=== PATIENT | male | born 1960 | race Caucasian/White ===

== ENCOUNTER 2023-04-07 11:45 | Outpatient (CLI) | payer MEDICARE, SELFPAY ==
[2023-04-07 18:30] LABS: Alanine Aminotransferase 41 U/L (6-50); Albumin Level 4.5 g/dL (3.5-5.1); Alkaline Phosphatase 54 U/L (38-126); Anion Gap 10 mmol/L (8-16); Aspartate Amino Transferase 75 U/L (17-59); Bilirubin,Total 1.3 mg/dL (0.2-1.3); Blood Urea Nitrogen 21 mg/dL (9-20); Calcium 9.3 mg/dL (8.4-10.2); Carbon Dioxide 27 mmol/L (22-30); Chloride 99 mmol/L (98-107); Cholesterol 111 mg/dL (0-200); Estimated Glomerular Filt Rate > 60; Glucose 96 mg/dL (65-110); HDL Direct 30 mg/dL; Potassium 4.2 mmol/L (3.4-5.0); Sodium 136 mmol/L (137-145); Triglycerides 83 mg/dL (<150)
[2023-04-07 18:41] LABS: LDL Cholesterol Direct 61 mg/dL
[2023-04-07 18:42] LABS: Hematocrit 48.7 % (42.0-52.0); Hemoglobin 16.1 g/dL (14.0-18.0); Mean Corpuscular HGB Conc 33.1 g/dl (32-36); Mean Corpuscular Volume 99.8 fl (80-100); Mean Platelet Volume 10.7 fl (7.4-10.4); Platelet Count Result 195 k/mm3 (150-375); Red Blood Count 4.88 M/mm3 (4.6-6.20); Red Cell Distribution Width 12.4 % (11.5-14.5); White Blood Count 8.4 K/mm3 (4.5-10.0)
[2023-04-07 18:48] LABS: Creatinine Urine 211.2 mg/dL
[2023-04-07 18:52] LABS: MALB Creatinine Ratio 38.1 mg/g (0-30); Microalbumin Urine Random 80.4 mg/L (0-16.7)
[2023-04-07 19:07] LABS: Vitamin D 25 Hydroxy 25.2 ng/mL
[2023-04-07 19:24] LABS: Hemoglobin A1C 5.7 % (<5.7)
[2023-04-07 19:39] LABS: Hepatitis C Virus Antibody Negative (Negative)
== END 2023-04-07 11:46 | disposition home or self-care (01) ==
PROVIDERS: PCP Family Medicine; Visit Provider Physician Assistant
DX: Z12.5 Encounter for screening for malignant neoplasm of prostate (principal); E11.9 Type 2 diabetes mellitus without complications; I10 Essential (primary) hypertension; E55.9 Vitamin D deficiency, unspecified; Z11.59 Encounter for screening for other viral diseases; Z79.899 Other long term (current) drug therapy
CPT/HCPCS: 36415; 80053; 80061; 82043; 82306; 82607; 83036; 84153; 84443; 85027; 86803; G0103

== ENCOUNTER 2023-08-26 11:02 | Outpatient (CLI) | payer MEDICARE, OTHER, SELFPAY ==
[2023-08-26 12:28] LABS: Alanine Aminotransferase 32 U/L (6-50); Albumin Level 4.4 g/dL (3.5-5.1); Alkaline Phosphatase 60 U/L (38-126); Aspartate Amino Transferase 45 U/L (17-59)
== END 2023-08-26 11:03 | disposition home or self-care (01) ==
PROVIDERS: PCP Family Medicine; Visit Provider Family Medicine
DX: R94.5 Abnormal results of liver function studies (principal)
CPT/HCPCS: 36415; 80076

== ENCOUNTER 2024-04-05 08:14 | Outpatient (CLI) | payer MEDICARE, OTHER, SELFPAY ==
[2024-04-05 14:42] LABS: Hemoglobin A1C 6.2 % (<5.7)
[2024-04-05 14:48] LABS: Alanine Aminotransferase 31 U/L (6-50); Albumin Level 4.4 g/dL (3.5-5.1); Alkaline Phosphatase 61 U/L (38-126); Anion Gap 9 mmol/L (4-12); Aspartate Amino Transferase 67 U/L (17-59); Bilirubin,Total 2.2 mg/dL (0.2-1.3); Blood Urea Nitrogen 21 mg/dL (9-20); Calcium 9.1 mg/dL (8.4-10.2); Carbon Dioxide 30 mmol/L (22-30); Chloride 98 mmol/L (98-107); Cholesterol 102 mg/dL (0-200); Estimated Glomerular Filt Rate > 60; Glucose 90 mg/dL (65-110); HDL Direct 34 mg/dL; Potassium 4.4 mmol/L (3.4-5.0); Sodium 137 mmol/L (137-145); Triglycerides 70 mg/dL (<150)
[2024-04-05 14:59] LABS: LDL Cholesterol Direct 50 mg/dL
[2024-04-05 15:19] LABS: Prostate Specific Antigen 1.3 ng/mL (< OR = 4.0)
[2024-04-05 17:31] LABS: MALB Creatinine Ratio 475.6 mg/g (0-30)
== END 2024-04-05 08:15 | disposition home or self-care (01) ==
LOC: ANHGOSHLAB 08:17
PROVIDERS: PCP Family Medicine; Visit Provider Family Medicine
DX: E11.9 Type 2 diabetes mellitus without complications (principal); Z12.5 Encounter for screening for malignant neoplasm of prostate
CPT/HCPCS: 36415; 80053; 80061; 82043; 82607; 83036; 84153; G0103

== ENCOUNTER 2024-08-03 08:10 | Outpatient (CLI) | payer MEDICARE, OTHER, SELFPAY ==
--- OUTSIDE RECORDS SUMMARY | 2024-08-03 08:21 | XMS_ITS | Referral Summary ---
Author Organization [facility] Address [address] [place] [phone] Care Team Providers Care Lace Inspector Name Role Phone Jose Enrique Gonzales MD Primary Care Provider [phone] Encounters Date Type Department Care Team Description 06/22/2024 Telephone [facility] Cardiology [address] [place] [phone] Duncan Esparza MD cancel cardioversion; echo results 06/14/2024 10:15 AM MANUFACTURING WEAVER Ancillary Procedure [facility] Medical [facility] Cardiology [address] [place] [phone] Atrial fibrillation, unspecified type (HCC) 05/24/2024 Telephone [facility] Cardiology at [address] [place] [phone] Duncan Esparza MD 05/24/2024 8:00 AM MANUFACTURING WEAVER Office Visit [facility] Cardiology at [address] [place] [phone] Duncan Esparza MD Atrial fibrillation, unspecified type (HCC) from Last 3 Months Allergies No known active allergies Medications multivitamin tablet Active rosuvastatin (CRESTOR) 5 mg tablet Take 1 tablet (5 mg total) by mouth Active omega 6-mir-qew-fish oil (FISH OIL) 60-90-500 mg capsule Take by mouth Active amLODIPine (NORVASC) 5 mg tablet Take 1 tablet (5 mg total) by mouth daily Active apixaban (ELIQUIS) 5 mg tablet Take 1 tablet (5 mg total) by mouth 2 (two) times a day Active azithromycin (ZITHROMAX) 250 mg tablet Take 1 tablet (250 mg total) by mouth daily Active cholecalciferol (VITAMIN D-3) 1,000 unit Take 1 tablet/capsule (1,000 Units total) by mouth daily Active flaxseed oiL 1,000 mg capsule Take by mouth Active hydroCHLOROthia zide 12.5 mg tablet Take 1 tablet (12.5 mg total) by mouth daily Active acidophilus-pec tin, citrus 100 million cell-10 mg capsule Take by mouth Activ e lisinopriL (PRINIVIL,ZESTR IL) 40 mg tablet Take 1 tablet (40 mg total) by mouth daily Active lysine 500 mg tablet 1 tablet (500 mg total) Active metFORMIN (GLUCOPHAGE) 500 mg tablet Take 2 tablets (1,000 mg total) by mouth 2 (two) times a day with meals Active metoprolol XL (TOPROL-XL) 25 mg extended release tablet Take 1 tablet (25 mg total) by mouth daily Active semaglutide (RYBELSUS) 14 mg tablet Take by mouth respiratory care instructor before breakfast Active Active Problems Problem Noted Date Diagnosed Date Atrial fibrillation 05/24/2024 Hemangioma of skin 07/20/2015 Benign neoplasm of soft tissues 07/20/2015 Skin benign neoplasm 11/02/2013 Eczema 11/02/2013 Social History Tobacco Use Types Packs/Day Years Used Date Smoking Tobacco: Never Smokeless Tobacco: Former Tobacco Cessation:Counseling Given: Not Answered Sex and Gender Information Value Date Recorded Sex Assigned at Not on file Legal Sex Male 4:18 AM MANUFACTURING WEAVER Gender Identity Not on file Sexual Orientation Not on file Last Filed Vital Signs Vital Sign Reading Time Taken Comments Blood Pressure 144/95 06/14/2024 9:58 AM MANUFACTURING WEAVER Pulse 100 05/24/2024 8:09 AM MANUFACTURING WEAVER Temperature - - Respiratory Rate - - Oxygen Saturation 96% 05/24/2024 8:09 AM MANUFACTURING WEAVER Inhaled Oxygen Concentration - - Weight 128.4 kg (283 lb) 05/24/2024 8:09 AM MANUFACTURING WEAVER Height 182.9 cm (6') 05/24/2024 8:09 AM MANUFACTURING WEAVER Body Mass Index 38.38 05/24/2024 8:09 AM MANUFACTURING WEAVER Plan of Treatment Not on file Procedures Procedure Name Priority Date/Time Associated Diagnosis Comments TRANSTHORACIC ECHO (TTE) COMPLETE W DOPPLER/CF WO CONTRAST Routine 06/14/2024 10:58 AM MANUFACTURING WEAVER Atrial fibrillation, unspecified type (HCC) ELECTROCARDIOGRAM REPORT Routine 024 10:08 AM MANUFACTURING WEAVER Atrial fibrillation, unspecified type (HCC) from Last 3 Months Results * TRANSTHORACIC ECHO (TTE) COMPLETE W DOPPLER/CF WO CONTRAST (06/14/2024 10:58 AM MANUFACTURING WEAVER) LV EF % CONS SCIMAGE Anatomical Region Laterality Modality Ultrasound 06/14/2024 10:0 0 AM MANUFACTURING WEAVER Narrative 06/14/2024 11:33 AM MANUFACTURING WEAVER [facility] Medical [facility] Cardiology [address] [facility] [address] [address] [address] [facility] [address], [place] [address] P:[phone] P:[phone] Echocardiographic Report Patient Name: SELVIN SINGH W : 1960 Study Date: 06/14/2024 10:00:34 AM Gender: M Tech: Location: [place] Ref Provider: DUNCAN ESPARZA Height(Cm): 183 BSA: 2.55 Weight(Kg): 128.4 Heart Rate: 106 BP: 144 / 95 Quality: Definity contrast agent used to enhance endocardial border definition Order Provider: DUNCAN ESPARZA PROCEDURES: Echocardiographic Report: Transthoracic echocardiogram with complete 2D, M-Mode, color Doppler examination and Definity contrast. INDICATIONS: I48.91 Unspecified atrial fibrillation. MEASUREMENTS: 2D/MM Value Range Doppler Value Range EF Mod BP 63 % [ 52 - 72 ] TRUDY Vmax 3.12 cm2 [ 2.00 - 4.00 ] EF Teich MM 73 % [ 52 - 72 ] AV Mean PG 3 mmHg LVIDd 2D 4.38 cm [ 4.20 - 5.80 ] AV Peak Kuldeep 1.15 m/s [ 1.00 - 1.70 ] LVIDd MM 5.55 cm [ 4.20 - 5.80 ] AV Peak PG 5 mmHg LVIDs 2D 3.49 cm [ 2.50 - 4.00 ] AV VTI 18.37 cm LVIDs MM 3.21 cm [ 2.50 - 4.00 ] LVOT Diam 2.20 cm [ 1.70 - 2.10 ] LVPWd 2D 1.14 cm [ 0.60 - 1.00 ] LVOT Peak Kuldeep 0.95 m/s [ 0.70 - 1.10 ] LVPWd MM 1.01 cm [ 0.60 - 1.00 ] LVOT VTI 15.65 cm IVSd 2D 2.42 cm [ 0.60 - 1.00 ] MV E Peak Kuldeep 0.66 m/s [ 0.60 - 1.30 ] IVSd MM 1.51 cm [ 0.60 - 1.00 ] MV Decel Time 181 msec [ 104 - 258 ] LA Dimension MM 5.12 cm [ 3.00 - 4.00 ] PV Peak Kuldeep 0.94 m/s [ 0.40 - 0.80 ] AoR Diam MM 4.00 cm [ 3.10 - 3.70 ] TR Peak Kuldeep 3.12 m/s [ 1.00 - 2.80 ] LA Volume Index 46 cc/m2 [ 16 - 34 ] TR Peak PG 39 mmHg RVSP 47.00 mmHg [ 10.00 - 36.00 ] Lateral E` 0.07 m/s [ 0.10 - 0.15 ] E` 0.05 m/s E/E` 10 2D/MM Value Range Doppler Value Range - FINDINGS: Interpretation Site: Exam was interpreted at [facility]. Left Ventricle: Definity contrast agent used to visually enhance endocardial wall motion and contractility. Lot Number: [id number]. Ejection fraction is measured at 63 %. The left ventricle is normal in size and systolic function. There is asymmetric septal hypertrophy. There is moderate concentric left ventricular hypertrophy. The left ventricular ejection fraction is visually estimated to be 60-65%. Right Ventricle: The right ventricle is normal in size and systolic function. Left Atrium: The left atrium is moderately dilated. Right Atrium: The right atrium is dilated. Atrial Septum: The atrial septum visually appears intact. Mitral Valve: The mitral valve is normal. There is mild mitral regurgitation. Aortic Valve: The aortic valve is probably trileaflet and opens well. There is no aortic regurgitation. Tricuspid Valve: The tricuspid valve is normal. There is trace tricuspid regurgitation. Pulmonic Valve: The pulmonic valve is not well visualized. There is no color Doppler evidence of pulmonic valve regurgitation. Pericardium: Normal pericardium with no significant pericardial effusion. Aorta: The aortic root at the level of the sinus of Valsalva measures 3.5 cm in diameter. IVC: Normal size and normal respiratory collapse consistent with normal right atrial pressure (<5 mmHg). CONCLUSIONS: Normal biventricular size and systolic function. There is asymmetric septal hypertrophy. The left atrium is moderately dilated. Electronically Signed By: Dr. Mic Mccracken 06/14/2024 11:32:24 AM MANUFACTURING WEAVER Procedure Note Mic Mccracken MD - 06/14/2024 [facility] Medical [facility] Cardiology [address] [facility] [id number] [address] [facility] [address] [address] P:[phone] P:[phone] Echocardiographic Report Patient Name: SELVIN SINGH W : 1960 Study Date: 06/14/2024 10:00:34 AM Gender: M Tech: Location: [facility] Provider: DUNCAN ESPARZA Height(Cm): 183 BSA: 2.55 Weight(Kg): 128.4 Heart Rate: 106 BP: 144 / 95 Quality: Definity contrast agent used to enhance endocardial borderdefinition Order Provider: DUNCAN ESPARZA PROCEDURES: Echocardiographic Report: Transthoracic echocardiogram with complete 2D, M-Mode, color Dopplerexamination and Definity contrast. INDICATIONS: I48.91 Unspecified atrial fibrillation. MEASUREMENTS: 2D/MM Value Range Doppler ValueRange EF Mod BP 63 % [ 52 - 72 ] TRUDY Vmax 3.12cm2 [ 2.00 - 4.00 ] EF Teich MM 73 % [ 52 - 72 ] AV Mean PG 3mmHg LVIDd 2D 4.38 cm [ 4.20 - 5.80 ] AV Peak Kuldeep 1.15m/s [ 1.00 - 1.70 ] LVIDd MM 5.55 cm [ 4.20 - 5.80 ] AV Peak PG 5mmHg LVIDs 2D 3.49 cm [ 2.50 - 4.00 ] AV VTI 18.37cm LVIDs MM 3.21 cm [ 2.50 - 4.00 ] LVOT Diam 2.20 cm[ 1.70 - 2.10 ] LVPWd 2D 1.14 cm [ 0.60 - 1.00 ] LVOT Peak Kuldeep 0.95m/s [ 0.70 - 1.10 ] LVPWd MM 1.01 cm [ 0.60 - 1.00 ] LVOT VTI 15.65cm IVSd 2D 2.42 cm [ 0.60 - 1.00 ] MV E Peak Kuldeep 0.66m/s [ 0.60 - 1.30 ] IVSd MM 1.51 cm [ 0.60 - 1.00 ] MV Decel Time 181msec [ 104 - 258 ] LA Dimension MM 5.12 cm [ 3.00 - 4.00 ] PV Peak Kuldeep 0.94m/s [ 0.40 - 0.80 ] AoR Diam MM 4.00 cm [ 3.10 - 3.70 ] TR Peak Kuldeep 3.12m/s [ 1.00 - 2.80 ] LA Volume Index 46 cc/m2 [ 16 - 34 ] TR Peak PG 39mmHg RVSP 47.00 mmHg [ 10.00 - 36.00 ] Lateral E` 0.07 m/s [ 0.10 - 0.15 ] E` 0.05 m/s E/E` 10 2D/MM Value Range Doppler ValueRange - FINDINGS: Interpretation Site: Exam was interpreted at [facility]. Left Ventricle: Definity contrast agent used to visually enhance endocardial wall motionand contractility. Lot Number: [id number]. Ejection fraction is measured at 63 %.The left ventricle is normal in size and systolic function. There is asymmetricseptal hypertrophy. There is moderate concentric left ventricular hypertrophy.The left ventricular ejection fraction is visually estimated to be 60-65%. Right Ventricle: The right ventricle is normal in size and systolic function. Left Atrium: The left atrium is moderately dilated. Right Atrium: The right atrium is dilated. Atrial Septum: The atrial septum visually appears intact. Mitral Valve: The mitral valve is normal. There is mild mitral regurgitation. Aortic Valve: The aortic valve is probably trileaflet and opens well. There is no aorticregurgitation. Tricuspid Valve: The tricuspid valve is normal. There is trace tricuspid regurgitation. Pulmonic Valve: The pulmonic valve is not well visualized. There is no color Dopplerevidence of pulmonic valve regurgitation. Pericardium: Normal pericardium with no significant pericardial effusion. Aorta: The aortic root at the level of the sinus of Valsalva measures 3.5 cm indiameter. IVC: Normal size and normal respiratory collapse consistent with normal rightatrial pressure (<5 mmHg). CONCLUSIONS: Normal biventricular size and systolic function. There is asymmetric septal hypertrophy. The left atrium is moderately dilated. Electronically Signed By: Dr. Mic Mccracken 06/14/2024 11:32:24 AM MANUFACTURING WEAVER Duncan Esparza MD CV ECHO PROCEDURES Final Result * Electrocardiogram Report (05/24/2024 10:08 AM MANUFACTURING WEAVER) us Duncan Esparza MD ECG ORDERABLES Edited R esult - Final from Last 3 Months Insurance [facility] Care Teams Lace Inspector Relationship Specialty Start Date End Date Jose Enrique Gonzales MD [address] [place] [address] PCP - General Internal Medicine 11/05/18
--- OUTSIDE RECORDS SUMMARY | 2024-08-03 08:21 | XMS_ITS | Clinical Summary ---
Author Organization [facility] Address [address] [place] [address] Care Team Providers Care Access Lead Name Role Phone Unavailable Primary Care Provider Unavailabl e Source Comments [facility],non-owned Affiliates and Associated Physician Practices is amultiple site organization consisting of ambulatory clinics and hospital sitesin [place], [place], [place] and [place]. This disclosure is being madepursuant to the Care Everywhere program and may not contain all information available regarding this patient. Last updated 18.[facility] Allergies No known active allergies Medications * Be aware that medications may not be up to date on this document. Alwaysverify current medications with the patient. Medication Sig Dispensed Refills Start Date End Date Status rosuvastatin (CRESTOR) 5 MG tablet Take 5 mg by mouth once daily Active ASPIRIN 81 PO Active NIACIN CR PO Active [place]-3 Fatty Acids (FISH OIL PO) Active Multiple Vitamins-Minerals (MULTIVITAMIN ADULT PO) A ctive Social History Tobacco Use Types Packs/Day Years Used Date Smoking Tobacco: Never Smokeless Tobacco: Never Sex and Gender Information Value Date Recorded Sex Assigned at Not on file Gender Identity Not on file Sexual Orientation Not on file Last Filed Vital Signs Vital Sign Reading Time Taken Comments Blood Pressure 162/102 10/24/2018 10:42 AM CDT Pulse 91 10/24/2018 10:42 AM CDT Temperature 37.8 C (100.1 F) 10/24/2018 10:42 AM CDT Respiratory Rate 20 10/24/2018 10:42 AM CDT Oxygen Saturation 93% 10/24/2018 10:42 AM CDT Inhaled Oxygen Concentration - - Weight 113.4 kg (250 lb) 10/24/2018 10:42 AM CDT Height 182.9 cm (6') 10/24/2018 10:42 AM CDT Body Mass Index 33.91 10/24/2018 10:42 AM CDT Plan of Treatment Health Maintenance Due Date Last Done Comments COLOGUARD (AGES 45-75) - COL ON CA SCREENING 1960 COLON MONITORING 1960 COLONOSCOPY - COLON CA SCREENING 1958 CT COLONOGRAPHY - COLON CA SCREENING 1960 Colorectal Cancer Screening 1960 FIT - COLON CA SCREENING 1960 FLEX SIG - COLON CA SCREENING 1960 HEPATITIS C SCREENING 03/16/1976 DTAP/TDAP/TD VACCINES (1 - Tdap) 1977 PNEUMOCOCCAL VACCINE 50+ (1 of 1 - PCV) 2008 ZOSTER VACCINE (1 of 2) 2008 SCREENING FOR DIABETES 10/24/2018 COVID-19 VACCINE ( - 2023-2 5 season) 2024 INFLUENZA VACCINE (#1) 2024 DEPRESSION SCREENING 05/25/2024 Respiratory Syncytial Virus (RSV) Vaccine Pt: or over 60 yrs (1 - 1-dose 75+ series) 2033 HEPATITIS B VACCINE Aged Out No longe r eligible based on patient's age to complete this topic HIB VACCINE Aged Out No longer eligi ble based on patient's age to complete this topic HPV VACCINE Aged Out No longer eligi ble based on patient's age to complete this topic MENINGOCOCCAL (Group B) VACC INE SHARED DECISION-MAKING Aged Out No longer eligibl e based on patient's age to complete this topic MENINGOCOCCAL GROUPS A/C/Y/W VACCINE Aged Out No longer eligible b ased on patient's age to complete this topic
--- OUTSIDE RECORDS SUMMARY | 2024-08-03 08:21 | XMS_ITS | Referral Summary ---
Author Organization [facility] Address [address] [place] [address] Care Team Providers Care Residential Support Worker Name Role Phone Unavailable Primary Care Provider Unavailabl e Source Comments [facility],non-owned Affiliates and Associated Physician Practices is amultiple site organization consisting of ambulatory clinics and hospital sitesin [place], [place], [place] and [place]. This disclosure is being madepursuant to the Care Everywhere program and may not contain all information available regarding this patient. Last updated 18.[facility] Allergies No known active allergies Medications * Be aware that medications may not be up to date on this document. Alwaysverify current medications with the patient. Medication Sig Dispensed Refills Start Date End Date Status rosuvastatin (CRESTOR) 5 MG tablet Take 5 mg by mouth once daily Active ASPIRIN 81 PO Active NIACIN CR PO Active [place]-3 Fatty Acids (FISH OIL PO) Active Multiple [...] 10/24/2018 10:42 AM CDT Plan of Treatment Not on file [place] [address]
--- OUTSIDE RECORDS SUMMARY | 2024-08-03 08:21 | XMS_ITS | Patient Health Summary ---
Author Organization [facility] Address [address] [place] [address] Care Team Providers Care Vascular Technologist Sonographer Name Role Phone Unavailable Primary Care Provider Unavailabl e Note from [facility],non-owned Affiliates and Associated Physician Practices is amultiple site organization consisting of ambulatory clinics and hospital sitesin [place], [place], [place] and [place]. This disclosure is being madepursuant to the Care Everywhere program and may not contain all information available regarding this patient. Last updated 18.[facility] Allergies No known active allergies Medications * Be aware that medications may not be up to date on this document. Alwaysverify current medications with the patient. * rosuvastatin (CRESTOR) 5 MG tablet Take 5 mg by mouth once daily * ASPIRIN 81 PO * NIACIN CR PO * [place]-3 Fatty Acids (FISH OIL PO) * Multiple Vitamins-Minerals (MULTIVITAMIN ADULT PO) Social History Tobacco Use Types Packs/Day Years [...] Mass Index 33.91 10/24/2018 10:42 AM CDT Procedures * INFLUENZA A+B - POINT OF CARE (AMB)(Performed 10/24/2018) Performed for Acute URI, Acute pharyngitis, unspecified etiology * STREP A SCREEN - POINT OF CARE (AMB) STL(Performed 10/24/2018) Performed for Acute URI, Acute pharyngitis, unspecified etiology Results * STREP A SCREEN - POINT OF CARE (AMB) STL (10/24/2018) Strep A Rapid POCT Negative Negative Strep A Internal Control Present Lot # [id number] Expiration Date 03/24/20 Throat ENTIRE THROAT (SURFACE REGION OF NECK) / Unknown 10/24/2018 [facility] RE ORDERABLES * INFLUENZA A+B - POINT OF CARE (AMB) (10/24/2018) Influenza A Antigen Rapid Negative Negative Influenza B Antigen Rapid Negative Negative Influenza Internal Control yes NEGATIVE - POSITIVE Influenza Lot Number [id number] Influenza Expiration Date 04/05/20 Other NASOPHARYNGEAL SWAB / Unknown 10/24/2018 [facility] - POINT OF CA RE ORDERABLES
--- OUTSIDE RECORDS SUMMARY | 2024-08-03 08:21 | XMS_ITS | Clinical Summary ---
Author Organization [facility] Address [address] [place] [address] Care Team Providers Care Generator Rebuilder Name Role Phone Jose Enrique Gonzales MD Primary Care Provider [phone] Allergies No known active allergies Medications multivitamin tablet Active rosuvastatin (CRESTOR) 5 mg tablet Take 1 tablet (5 mg total) by mouth Active omega 7-qtm-icn-fish oil (FISH OIL) 60-90-500 mg capsule Take [...] (RYBELSUS) 14 mg tablet Take by mouth superintendent maintenance before breakfast Active Active Problems Problem Noted Date Diagnosed Date Atrial fibrillation 05/24/2024 Hemangioma of skin 07/20/2015 Benign neoplasm of soft tissues 07/20/2015 Skin benign neoplasm 11/02/2013 Eczema 11/02/2013 Encounters Date Type Department Care Team Description 06/22/2024 Telephone [facility] [address] [facility] [address] [place] [address] Duncan Esparza MD cancel cardioversion; echo results 06/14/2024 10:15 AM BLACKENER Ancillary Procedure [facility] Cardiology [address] [facility] [address] [place] [address] Atrial fibrillation, unspecified type (HCC) 05/24/2024 8:00 AM BLACKENER Office Visit [facility] Medical Group Cardiology at [address] [place] [address] Duncan Esparza MD Atrial fibrillation, unspecified type (HCC) 05/24/2024 Telephone [facility] Cardiology at [address] [place] [address] Duncan Esparza MD from Last 3 Months Surgical History Surgery Date Site/Laterality Comments CYST REMOVAL Medical History Medical History Date Comments Hyperlipidemia Hypertension Atrial fibrillation (HCC) Diabetes mellitus (HCC) Family History Medical History Relation Name Comments Heart attack Father Thyroid disease Father Skin cancer Father's Brother Family hist ory of skin cancer - (Added by TW Conv) Prostate cancer Mother Relation Name Status Comments Father Father's Brother Mother Social History Tobacco Use Types Packs/Day Years Used Date Smoking Tobacco: Never Smokeless Tobacco: Former Tobacco Cessation:Counseling Given: Not Answered Sex and Gender Information Value Date Recorded Sex Assigned at Not on file Legal Sex Male 4:18 AM BLACKENER Gender Identity Not on file Sexual Orientation Not on file Obstetrics History Last Filed Vital Signs Vital Sign Reading Time Taken Comments Blood Pressure 144/95 06/14/2024 9:58 AM BLACKENER Pulse 100 05/24/2024 8:09 AM BLACKENER Temperature - - Respiratory Rate - - Oxygen Saturation 96% 05/24/2024 8:09 AM BLACKENER Inhaled Oxygen Concentration - - Weight 128.4 kg (283 lb) 05/24/2024 8:09 AM BLACKENER Height 182.9 cm (6') 05/24/2024 8:09 AM BLACKENER Body Mass Index 38.38 05/24/2024 8:09 AM BLACKENER Plan of Treatment Health Maintenance Due Date Last Done Comments Colon Cancer Screening-Colonoscopy 1960 Depression Screening 1960 Fall Risk Assessment 1960 Hepatitis C Screening 1960 Prostate Cancer Screening-PSA 1958 Hepatitis B Screening 1976 Well Visit 65+ 2023 Covid-19 Vaccine (2023-2 5 season) 2024 03/16/2024, 08/26/2023, 02/26/2023, Additional history exists DTaP/Tdap/Td Vaccine (3 - Td or Tdap) 01/25/2032 01/24/2022, 08/13/2009 Pneumococcal vaccine 65+ Completed 04/07/2023 Zoster Vaccine Completed 02/24/2024, 12/04/2023 Influenza Vaccine Completed 03/16/2024, , 03/31/2022, Additional history exists Procedures Procedure Name Priority Date/Time Associated Diagnosis Comments TRANSTHORACIC ECHO (TTE) COMPLETE W DOPPLER/CF WO CONTRAST Routine 06/14/2024 10:58 AM BLACKENER Atrial fibrillation, unspecified type (HCC) ELECTROCARDIOGRAM REPORT Routine 024 10:08 AM BLACKENER Atrial fibrillation, unspecified type (HCC) from Last 3 Months Results * TRANSTHORACIC ECHO (TTE) COMPLETE W DOPPLER/CF WO CONTRAST (06/14/2024 10:58 AM BLACKENER) LV EF % CONS SCIMAGE Anatomical Region Laterality Modality Ultrasound 06/14/2024 10:0 0 AM BLACKENER Narrative 06/14/2024 11:33 AM BLACKENER [facility] Cardiology [address], [place], [place] [address] [address] [facility] [address], [place] [address] P:[phone] P:[phone] Echocardiographic Report Patient Name: SELVIN SINGH W : 1960 Study Date: 06/14/2024 10:00:34 AM Gender: M Tech: Location: [facility] Provider: DUNCAN ESPARZA Height(Cm): 183 BSA: 2.55 [...] FINDINGS: Interpretation Site: Exam was interpreted at [facility]. Left Ventricle: Definity contrast agent used [...] By: Dr. Mic Mccracken 06/14/2024 11:32:24 AM BLACKENER Procedure Note Mic Mccracken MD - 06/14/2024 [facility] Medical [facility] Cardiology [address], [place] [address] [address] [facility] [address], [place] [address] [phone] P:[phone] Echocardiographic Report Patient Name: SELVIN SINGH W : 1960 Study Date: 06/14/2024 10:00:34 AM Gender: M Tech: Location: [facility] Provider: DUNCAN ESPARZA Height(Cm): 183 BSA: 2.55 [...] FINDINGS: Interpretation Site: Exam was interpreted at [facility]. Left Ventricle: Definity contrast agent used [...] By: Dr. Mic Mccracken 06/14/2024 11:32:24 AM BLACKENER Duncan Esparza MD CV ECHO PROCEDURES Final Result * Electrocardiogram Report (05/24/2024 10:08 AM BLACKENER) Duncan Esparza MD ECG ORDERABLES Edited R esult - Final from Last [address] [place] [place] [phone] [facility] HE[facility] PLAN [facility] PPO MEDICARE Care Teams Generator Rebuilder Relationship Specialty Start Date End Date Jose Enrique Gonzales MD [address] [place], [place] [id number] PCP - General Internal Medicine 11/05/18
--- OUTSIDE RECORDS SUMMARY | 2024-08-03 08:21 | XMS_ITS | Data Portability ---
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 Plan of Treatment Reminders Order Date Submit Date Provider Last Modified By Organization Details Last Modified Time Details Appointments None record ed. Lab None record ed. Referral None record ed. Procedures None record ed. Surgeries None record ed. Imaging None record ed. Medication Orders None record ed. Patient TargetsNo targets recorded. Patient InstructionsNo instructions recorded. Reason for Referral None Reported. Procedures Surgical History Date Name Laterality Status Provider Name and Address Organization Details Recorded Time 03/30/2019 Sleep Study completed Bryson Dan [facility]/ [facility] [place] [place] 03/31/2019 16:47:25 Imaging Results None recorded. Procedure Notes None recorded. Medical Equipment None Reported. Medications Name Sig Start Date Stop Date Status Note LastModified by Organization Details LastModified Time metformin 500 mg tablet active Not Available Not Available Not Available lisinopril 20 mg tablet active Not Available Not Available Not Available amlodipine 2.5 mg tablet active Not Available Not Available Not Available zolpidem 5 mg tablet active Not Available Not Available Not Available lisinopril 40 mg tablet active Not Available Not Available Not Available rosuvastatin 20 mg tablet active Not Available Not Available Not Available hydrochlorothiazide 12.5 mg tablet active Not Available Not Availab le Not Available Vitals Date Recorded Body height Body mass index (BMI) Body weight Provider Name and Address Organization Details Last Updated DateTime 03/30/2019 180.34 cm 37.7 kg/m2 987822.94 g Gallito Lewisren-Hrit z [facility] [place] [place] 03/30/2019 16:18:09 Social History None recorded. Functional Status None recorded. Mental Status None recorded. Family History Nothing Reported. Medical History No medical history recorded. Past Encounters Encounter ID Performer Location Encounter Start Date Encounter Closed Date Diagnosis/Indication Diagnosis SNOMED-CT Code Diagnosis ICD10 Code Diagnosis Note [id number] MD KENZIE Garcia, Nata.C.C.P. [id number] [address] [facility] [phone] [facility] [address] [place] [address] 03/30/2019 15:19:56 03/31/2019 16:49:29 Obstructive sleep apnea of adult 5159739884 103 G47.33 Health Concerns Section Related Observation LastModified by Organization Detai ls LastModified Time None Recorded Concern Status LastModified by Organization Details LastModified Time None Recorded Advance Directives Directive None Recorded Payers Encounter Date Sequence Insurance Name Policy Number Policy Lewis Covered Member ID Lewis Member ID Guarantor Name 03/30/2019 1 [facility] Donovan Mccrackenlevi [id number] Donovan Hoffman Notes Date Note Type Note Provider Name and Address Organization Details Recorded Time 03/30/2019 text/html HST SetupReporte d [email or web address] set upDemonstrated to patient how to set up Home Sleep Test Device. The patient was able to return demonstration with out difficulty.; The patient is returning the device the following morning. MD KENZIE Garcia, Nata.C.C.P. [id number] [address] [facility] [address], [place], [address], [facility] [place] [facility] [place] [place] 03/31/2019 17:05:28
[2024-08-03 14:46] LABS: Creatinine Urine 202.6 mg/dL
[2024-08-03 15:01] LABS: MALB Creatinine Ratio 208.1 mg/g (0-30); Microalbumin Urine Random 421.6 mg/L (0-16.7)
== END 2024-08-03 08:11 | disposition home or self-care (01) ==
PROVIDERS: PCP Family Medicine; Visit Provider Student in an Organized Health Care Education/Training Program
DX: R80.9 Proteinuria, unspecified (principal); E11.29 Type 2 diabetes mellitus with other diabetic kidney complication
CPT/HCPCS: 82043

== ENCOUNTER 2025-04-11 10:52 | Outpatient (CLI) | payer MEDICARE, OTHER, SELFPAY ==
[2025-04-11 13:00] LABS: Hematocrit 49.2 % (42.0-52.0); Hemoglobin 16.2 g/dL (14.0-18.0); Immature Granulocyte Percent A 0.3 % (0-0.5); Lymphocytes Absolute Auto 1.94 K/mm3 (0.9-3.2); Mean Corpuscular HGB Conc 32.9 g/dl (32-36); Mean Corpuscular Hemoglobin 33.5 pg (26-34); Mean Corpuscular Volume 101.7 fl (80-100); Nucleated Red Blood Cells Absolute Auto 0.000 K/mm3 (0.0-0.012); Nucleated Red Blood Cells Perc 0.0 % (0.0-0.2); Platelet Count Result 206 k/mm3 (150-375); Red Blood Count 4.84 M/mm3 (4.6-6.20); White Blood Count 6.9 K/mm3 (4.5-10.0)
[2025-04-11 13:17] LABS: Alanine Aminotransferase 29 U/L (6-50); Albumin Level 4.4 g/dL (3.5-5.1); Alkaline Phosphatase 85 U/L (38-126); Anion Gap 10 mmol/L (4-12); Aspartate Amino Transferase 52 U/L (17-59); Bilirubin,Total 3.3 mg/dL (0.2-1.3); Blood Urea Nitrogen 23 mg/dL (9-20); Calcium 9.1 mg/dL (8.4-10.2); Carbon Dioxide 26 mmol/L (22-30); Chloride 99 mmol/L (98-107); Cholesterol 98 mg/dL (0-200); Estimated Glomerular Filt Rate > 60; Glucose 104 mg/dL (65-110); HDL Direct 28 mg/dL; Potassium 4.4 mmol/L (3.4-5.0); Sodium 135 mmol/L (137-145); Total Protein 7.8 g/dL (6.3-8.2); Triglycerides 69 mg/dL (<150)
[2025-04-11 13:54] LABS: Prostate Specific Antigen 1.3 ng/mL (< OR = 4.0)
[2025-04-11 14:13] LABS: Vitamin B12 666.0 pg/mL (239-931)
[2025-04-11 17:18] LABS: Hemoglobin A1C 6.1 % (<5.7)
[2025-04-12 17:35] LABS: Thyroid Stimulating Hormone 3.330 uIU/mL (0.465-4.680)
[2025-04-13 14:09] LABS: Folate, Hemolysate >620.0 ng/mL (Not Estab.); Hematocrit 50.3 % (37.5-51.0)
== END 2025-04-11 10:53 | disposition home or self-care (01) ==
LOC: ANHGOSHLAB 10:54
PROVIDERS: PCP Family Medicine; Visit Provider Family Medicine
DX: Z12.5 Encounter for screening for malignant neoplasm of prostate (principal); E11.29 Type 2 diabetes mellitus with other diabetic kidney complication; R80.9 Proteinuria, unspecified; E55.9 Vitamin D deficiency, unspecified; D75.89 Other specified diseases of blood and blood-forming organs; K76.0 Fatty (change of) liver, not elsewhere classified; Z79.899 Other long term (current) drug therapy
CPT/HCPCS: 36415; 80053; 80061; 82306; 82607; 82747; 83036; 84153; 84443; 85025; G0103